=== PATIENT | male | born 1960 | race Two or more races ===

== ENCOUNTER 2018-12-25 07:41 | Day surgery (SDC) | payer OTHER | END 2018-12-25 12:40 | disposition home or self-care (01) | LOC: AMB-ENDOS 07:41 → EDBD 12:15 → AMB-ENDOS 12:40 | DX: D12.8 Benign neoplasm of rectum (principal); K64.8 Other hemorrhoids ==

== ENCOUNTER 2020-01-14 09:04 | Day surgery (SDC) | payer OTHER | END 2020-01-14 13:00 | disposition home or self-care (01) | LOC: AMB-ENDOS 09:04 | PROVIDERS: ATTEND Surgery | DX: K62.89 Other specified diseases of anus and rectum (principal); Z20.828 Contact with and (suspected) exposure to other viral communicable diseases; K64.8 Other hemorrhoids ==

== ENCOUNTER 2021-02-23 09:12 | Day surgery (SDC) | payer OTHER | END 2021-02-23 14:10 | disposition home or self-care (01) | LOC: AMB-ENDOS 09:12 | PROVIDERS: ATTEND Surgery | DX: D12.8 Benign neoplasm of rectum (principal); K64.8 Other hemorrhoids; Z20.822 Contact with and (suspected) exposure to COVID-19 ==